=== PATIENT | male | born 1950 ===

== ENCOUNTER 2017-08-06 09:06 | Day surgery (SDC) | payer MEDICARE ==
[2017-08-02 12:22] VITALS: BMI 30.4
[2017-08-06 09:47] LABS: BASO # 0.05 K/mm3 (0.0-2.0); BASO % 0.6 % (0.0-3.0); EOS # 0.3 (0.0-0.7); EOS % 3.9 % (1.5-5.0); GRAN # 5.05 (1.4-6.5); GRAN % 65.3 % (50.0-68.0); LYMPH # 1.8 (1.2-3.4); LYMPH % 23.1 % (22.0-35.0); MEAN CELL VOLUME 89.9 fl (80.0-105.0); MEAN CORPUSCULAR HEMOGLOBIN 31.7 pg (25.0-35.0); MEAN CORPUSCULAR HGB CONC 35.3 g/dl (31.0-37.0); MONO # 0.6 (0.1-0.6); MONO % 7.1 % (1.0-6.0); RBC 4.73 10^6/uL (3.5-6.1); RED CELL DISTRIBUTION WIDTH 12.7 % (11.5-14.5); WHITE BLOOD COUNT 7.7 10^3/ul (4.5-11.0)
[2017-08-06 09:50] LABS: BLOOD UREA NITROGEN 15 mg/dL (7-21); CALCIUM 9.5 mg/dL (8.4-10.5); GFR AFRICAN-AMERICAN > 60; GFR NON-AFRICAN AMERICAN > 60
[2017-08-06 09:54] LABS: INR 1.03 (0.93-1.08); PARTIAL THROMBOPLASTIN TIME 31.2 Seconds (25.1-36.5); PROTHROMBIN TIME 11.8 SECONDS (9.4-12.5)
[2017-08-06] MEDS ORDERED: Midazolam 2 MG/2 ML VIAL ONE (11:39)
[2017-08-06] MEDS ORDERED: Lidocaine 1% Inj (20ml) ONE (11:56)
[2017-08-06] MEDS ORDERED: Oxycodone/Acetaminophen 5/325 mg Tab PO PRN (14:16)
[2017-08-06] MEDS ORDERED: Sodium Chloride 0.45% 1,000 ML IV SCH (14:30)
[2017-08-06] MEDS ORDERED: Oxycodone/Acetaminophen 5/325 mg Tab ONE (15:01)
[2017-08-06 15:32] VITALS: RESP 18; TEMP 98; O2SAT 97
[2017-08-06 16:07] VITALS: BP 166/96; PULSE 62
--- NOTE | 2017-08-06 20:37 | CT ---
PROCEDURE: CT guided left periaortic lymph node biopsy. HISTORY: Colon CA. 3 cm left periaortic lymph node. Positive PET. Evaluate for metastatic disease PHYSICIAN(S): Donnie Matthews MD. TECHNIQUE: The relative risks and indications of the procedure were explained to the patient and consent obtained. The patient was placed prone on the CT scanner and preliminary images through the mid abdomen obtained. Conscious sedation and monitoring were provided throughout the procedure by a nurse. There is a 3.3 cm enlarged left periaortic lymph node which corresponds the abnormality on PET-CT. A left posterior paraspinal approach was selected and the area prepped and draped in the usual sterile fashion. 1% Xylocaine was used to anesthetize the skin and soft tissues. A 17-gauge guiding needle was advanced into the 3.3 cm left periaortic lymph node. Its position was confirmed with CT. Using coaxial technique, multiple core biopsies were obtained. The postprocedure images show no evidence of significant hemorrhage. IMPRESSION: 1. CT-guided left periaortic lymph node biopsy as described above.
== END 2017-08-06 16:15 | disposition home or self-care (01) ==
LOC: SDS 09:06
PROVIDERS: ATTEND Radiology Vascular & Interventional Radiology
DX: C77.2 Secondary and unspecified malignant neoplasm of intra-abdominal lymph nodes (principal); Z85.038 Personal history of other malignant neoplasm of large intestine; Z90.49 Acquired absence of other specified parts of digestive tract; L40.9 Psoriasis, unspecified
CPT/HCPCS: 36415; 49180; 77012; 80048; 85025; 85610; 85730; 88305; J2250; J2405; J3010; J7030